=== PATIENT | female | born 1995 | race Caucasian/White ===

== ENCOUNTER 2016-12-07 11:31 | Emergency (ER) | payer BC ==
[~2016-12-07] VITALS: Ht 165.1 cm; Wt 61.0 kg
[2016-12-07 11:35] VITALS: BP 117/71; PULSE 82; TEMP 98.6
== END 2016-12-07 12:07 | disposition home or self-care (01) ==
LOC: COL.ER 11:31
DX: H00.014 Hordeolum externum left upper eyelid (principal)

== ENCOUNTER 2019-10-10 15:05 | Emergency (ER) | payer BC ==
[~2019-10-10] VITALS: Ht 167.6 cm; Wt 85.0 kg
--- NOTE | 2019-10-10 15:20 | NUR ---
1520- RN at bedside for strip. Pt states she is a G1L0, 29+2. Pt of Dr Quintero. She denies VB, LOF, UCs. +FM. 1523- EFM and TOCO applied, adjusted until tracing well. Lots of movement heard on monitor.
[2019-10-10 15:30] VITALS: TEMP 97.9
[2019-10-10 16:14] LABS: COLLECTION METHOD CLEAN CATCH
[2019-10-10 16:22] LABS: MUCOUS Present /lpf; PH 6 (5-8); URINE APPEARANCE Hazy; URINE BACTERIA Rare /hpf; URINE BILIRUBIN Negative (NEGATIVE); URINE BLOOD Negative (NEGATIVE); URINE COLOR Yellow; URINE GLUCOSE Negative (NEGATIVE); URINE KETONE Trace (NEGATIVE); URINE LEUKOCYTE ESTERASE Negative (NEGATIVE); URINE NITRATE Negative (NEGATIVE); URINE PROTEIN(semi-quant) Negative (NEGATIVE); URINE RBC 0-2 /hpf
[2019-10-10 17:22] VITALS: BP 116/84; PULSE 61
== END 2019-10-10 17:16 | disposition home or self-care (01) ==
LOC: COL.ER 15:05
PROVIDERS: Emergency Medicine
DX: O26.893 Other specified pregnancy related conditions, third trimester (principal); R07.2 Precordial pain; R55 Syncope and collapse; Z3A.29 29 weeks gestation of pregnancy

== ENCOUNTER 2019-12-25 12:05 | Inpatient (IN) | payer BC ==
[~2019-12-25] VITALS: Ht 167.6 cm; Wt 93.6 kg
[2019-12-25] VITALS (32 sets, daily range): BP systolic 109–139; BP diastolic 65–125; PULSE 76–120; TEMP 98.4–98.7
--- NOTE | 2019-12-25 12:05 | NUR ---
PATIENT HERE FOR LABOR CHECK. PATIENT TO LR 4. PATIENT CHANGED INTO GOWN, ON EFM,ASSESMENT COMPLETE, VITALS OBTAIEND. SVE REVEALED /-3 NEGATIVE AMNITRACE. BOYFRIEND HERE WITH PATIENT. PATIENT DENIES CONTRACTIONS. LEAKING OF FLUID OR BLEEDING
[2019-12-25] MEDS ORDERED: LEXAPRO 10MG10 MG PO (12:17)
[2019-12-25] MEDS ORDERED: PRENATAL (12:17)
[2019-12-25] MEDS ORDERED: ZOVIRAX 200MG200 MG (12:17)
--- NOTE | 2019-12-25 12:59 | NUR ---
PATIENT WL TO WR
[2019-12-25 14:21] LABS: BASO # 0.1 (0.0-0.2); BASO % 0.4 % (0.0-2.0); EOS # 0.1 (0.0-0.7); EOS % 0.5 % (0-4.0); GRAN # 9.7 (1.4-6.5); GRAN % 73.3 % (42.2-75.2); HEMATOCRIT 40.7 % (37.0-47.0); HEMOGLOBIN 13.6 g/dl (12.5-16.0); LYMPH # 2.3 (1.2-3.4); LYMPH % 17.6 % (20.0-51.0); MEAN CELL VOLUME 88 fl (80.0-100.0); MEAN CORPUSCULAR HEMOGLOBIN 30 pg (27.0-31.0); MEAN CORPUSCULAR HGB CONC 33 g/dl (33.0-37.0); MEAN PLATELET VOLUME 12.9 fl (7.4-10.4); MONO % 7.5 % (1.7-9.3); PLATELET COUNT 182 K/mm3 (130-400); RED BLOOD COUNT 4.61 M/mm3 (4.10-5.30); REDCELL DISTRIBUTION WIDTH-CV 14.1 % (11.5-14.5)
--- NOTE | 2019-12-25 16:49 | NUR ---
1640- PATIENT LL TO WR THEN TO WL
--- NOTE | 2019-12-25 17:15 | NUR ---
PATIENT OFF EFM AND Ambulated TO OR AT THIS TIME
--- NOTE | 2019-12-25 17:56 | NUR ---
1632- AUDIBLE HEART TONES IN 80S WHEN ON BACK TO BREAK WATER DR FIORE DECLARED SECTION AT 1657
[2019-12-26 01:35] VITALS: BP 119/66; PULSE 85; TEMP 98.2; TEMP 98.5
[2019-12-26 04:20] VITALS: BP 112/60; PULSE 89; TEMP 98
[2019-12-26 08:22] VITALS: BP 118/64; PULSE 82; TEMP 98.1
--- NOTE | 2019-12-26 09:52 | NUR ---
Initial visit attempt; Family sleeping, Slat Basket Top Maker left card of congratulations and information regarding the availability of spiritual care at our hospital.
[2019-12-26 16:05] VITALS: BP 110/58; PULSE 86; TEMP 97.8
[2019-12-26 20:29] VITALS: BP 123/71; PULSE 82; TEMP 97.3
[2019-12-27 09:12] VITALS: BP 121/77; PULSE 99; TEMP 97.8
[2019-12-27] MEDS ORDERED: MOTRIN 800800 MG/TAB PO (09:27)
[2019-12-27] MEDS ORDERED: PERCOCET 325 MG1 TA2 PO (09:27)
[2019-12-27 16:15] VITALS: BP 126/74; PULSE 92; TEMP 98.1
--- NOTE | 2019-12-27 18:30 | NUR ---
Ambulated to [facility] at this time. Updated whiteboard and reviewed POC. Denied questions or concerns.
[2019-12-27 19:45] VITALS: BP 121/81; PULSE 82; TEMP 98.1
[2019-12-28 08:40] VITALS: BP 118/64; PULSE 76; TEMP 98.3
--- NOTE | 2019-12-28 14:03 | NUR ---
1040 DISCHARGE INSTRUCTIONS REVIEWED WITH PATIENT. PATIENT VERBALIZED UNDERSTANDING. ALL QUESTIONS ANSWERED. PATIENT GOING TO BOARDER STATUS AT THIS TIME. PATIENT VERBALIZED UNDERSTANDING OF BOARDER STATUS AND THAT SHE IS DISCHARGED.
== END 2019-12-28 10:40 | disposition home or self-care (01) | DRG 787 ==
LOC: LDRO 12:05 → LDR 13:42 → OB 13:42
PROVIDERS: Student in an Organized Health Care Education/Training Program; ADMIT Obstetrics & Gynecology
PROC: 10D00Z1 Extraction of Products of Conception, Low, Open Approach (ICD-10-PCS; principal; 2019-12-25)
DX: O77.9 Labor and delivery complicated by fetal stress, unspecified (principal); O98.513 Other viral diseases complicating pregnancy, third trimester; B00.89 Other herpesviral infection; O99.344 Other mental disorders complicating childbirth; F32.9 Major depressive disorder, single episode, unspecified; O77.0 Labor and delivery complicated by meconium in amniotic fluid; F41.9 Anxiety disorder, unspecified; O99.613 Diseases of the digestive system complicating pregnancy, third trimester; K21.9 Gastro-esophageal reflux disease without esophagitis; Z20.828 Contact with and (suspected) exposure to other viral communicable diseases; Z3A.40 40 weeks gestation of pregnancy; Z37.0 Single live birth
CPT/HCPCS: J0690; J1885; J2270; J2370; J2405; J2590; J7120